=== PATIENT | female | born 1960 | race Hispanic/Latino ===

== ENCOUNTER → 2020-09-01 | Outpatient (CLI) | payer BC ==
--- NOTE | 2020-09-01 15:53 | Diagnostic Imaging Report ---
CT BRAIN WO HISTORY: Normal pressure hydrocephalus COMPARISON: None. TECHNIQUE: Noncontrast axial scans were obtained from skull base to the vertex. Coronal and sagittal reconstructions obtained from the axial data. One or more of the following dose reduction techniques were used: Automated exposure control, adjustment of the mA and/or kV according to patient size, and/or utilization of iterative reconstruction technique. DISCUSSION: Scalp/Skull: Right parietal jackson hole. Otherwise, unremarkable. Brain sulci: Mildly prominent. Ventricles: Moderate supratentorial ventriculomegaly (including colpocephaly) is out of proportion to sulcal prominence. Right parietal approach ventricular shunt catheter terminates in the body of the right lateral ventricle. The cerebral aqueduct and fourth ventricle are unremarkable. Extra-axial spaces: No masses or fluid collections. Parenchyma: Mild focal right parietal hypodensity along the ventricular catheter tract is likely due to gliosis. Otherwise, no mass, hemorrhage, or large vascular territory acute infarct. Dural sinuses: No abnormal densities. Sellar/Suprasellar region: Intact. Skull base: Intact. Incidental findings: Minimal right sphenoid sinus mucosal thickening is present. IMPRESSION: 1. 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 Right parietal ventricular shunt catheter terminates in the body of the right lateral ventricle. 2. Otherwise, no acute intracranial abnormalities. 3. Signed by: Dr. Fabrice Alanis M.D. on 09/01/2020 3:50 PM
== END ==
LOC: CT 14:05
PROVIDERS: ATTEND Psychiatry & Neurology Neurology
DX: G91.2 (Idiopathic) normal pressure hydrocephalus (principal); Z98.2 Presence of cerebrospinal fluid drainage device; R41.89 Other symptoms and signs involving cognitive functions and awareness
CPT/HCPCS: 70450

== ENCOUNTER → 2022-11-15 | Outpatient (CLI) | payer BC | LOC: CT 14:06 | PROVIDERS: ATTEND Psychiatry & Neurology Neurology | DX: G91.9 Hydrocephalus, unspecified (principal); R41.89 Other symptoms and signs involving cognitive functions and awareness; Z98.2 Presence of cerebrospinal fluid drainage device | CPT/HCPCS: 70450 ==

== ENCOUNTER → 2024-11-13 | Day surgery (SDC) | payer BC, OTHER ==
[2024-11-06 12:35] LABS: BASOPHILS # (AUTO) 0.1 (0.0-0.1); BASOPHILS % 0.5 % (0.0-1.0); EOSINOPHILS # (AUTO) 0.3 (0.0-0.4); EOSINOPHILS % 2.7 % (0.0-6.0); HEMATOCRIT 43.7 % (34.2-44.1); HEMOGLOBIN 13.2 g/dL (12.0-16.0); LYMPHOCYTES # (AUTO) 3.1 (1.0-3.2); LYMPHOCYTES % 27.5 % (18.0-39.1); MEAN CORPUSCULAR HEMOGLOBIN 28.8 pg (28-32); MEAN CORPUSCULAR HGB CONC 30.2 g/dL (31-35); MEAN CORPUSCULAR VOLUME 95.4 fL (81-99); MONOCYTES # (AUTO) 0.5 (0.2-0.8); MONOCYTES % 4.8 % (4.4-11.3); NEUTROPHILS # (AUTO) 7.1 (2.1-6.9); NEUTROPHILS % 64.1 % (38.7-80.0); PLATELET COUNT 303 x10e3/uL (140-360); RED BLOOD COUNT 4.58 x10e6/uL (3.6-5.1); WHITE BLOOD COUNT 11.11 x10e3/uL (4.8-10.8)
[~2024-11-13] MED LIST: ADVAIR 250-501 EACH INH; AMITRIPTYLINE H25 MG PO; ASPIRIN81 MG PO; CYMBALTA20 MG PO; GLIMEPIRIDE2 MG PO; LIDOCAINE HCL 2% LOCAL INJ 5 ML SDV VIAL INJ ONE; LISINOPRIL10 MG PO; MONTELUKAST SOD10 MG PO; MOUNJARO5 MG/0.5 M INJ; NEURONTIN300 MG PO; PROPOFOL IV EMULSION 10 MG/ML 20 ML VIAL ONE; PROPOFOL IV EMULSION 50 ML IV ONE; TRAZODONE HCL100 MG PO; VENTOLIN HFA18 GM INH
[2024-11-13] MEDS: LACTATED RINGER'S 1,000 ML ONE (13:15)
[2024-11-13 13:17] LABS: INR 0.94; PARTIAL THROMBOPLASTIN TIME 27.5 seconds (23.8-35.5); PROTHROMBIN TIME 13.1 seconds (11.9-14.5)
[2024-11-13 13:23] LABS: CALCIUM 9.6 mg/dL (8.4-10.2); CREATININE, SERUM 1.23 mg/dL (0.57-1.11)
[2024-11-13 14:50] VITALS: TEMP 97.4
[2024-11-13 15:20] VITALS: BP 138/74; PULSE 85; RESP 13; O2SAT 100
== END | disposition home or self-care (01) ==
LOC: OR 11:46
PROVIDERS: ATTEND Internal Medicine Gastroenterology
DX: Z12.11 Encounter for screening for malignant neoplasm of colon (principal); K63.5 Polyp of colon; K57.30 Diverticulosis of large intestine without perforation or abscess without bleeding; K64.8 Other hemorrhoids; K28.9 Gastrojejunal ulcer, unspecified as acute or chronic, without hemorrhage or perforation; E11.9 Type 2 diabetes mellitus without complications; I10 Essential (primary) hypertension; E78.5 Hyperlipidemia, unspecified; J45.909 Unspecified asthma, uncomplicated; N28.9 Disorder of kidney and ureter, unspecified; N02.B1 Recurrent and persistent immunoglobulin A nephropathy with glomerular lesion; F41.9 Anxiety disorder, unspecified; F32.A Depression, unspecified; Z01.810 Encounter for preprocedural cardiovascular examination; Z01.812 Encounter for preprocedural laboratory examination; Z79.82 Long term (current) use of aspirin; Z79.84 Long term (current) use of oral hypoglycemic drugs; Z79.85 Long-term (current) use of injectable non-insulin antidiabetic drugs; Z79.899 Other long term (current) drug therapy
CPT/HCPCS: 36415 ×2; 45380; 80048; 85025; 85610; 85730; 93005; J2003; J2704 ×2; J7121; 45384